=== PATIENT | female | born 1960 | race Two or more races ===

== ENCOUNTER 2021-04-12 06:38 | Day surgery (SDC) | payer OTHER ==
[~2021-04-12 06:38] MED LIST: PROAIR HFA8.5 GM IH
== END 2021-04-12 18:45 | disposition home or self-care (01) ==
LOC: CIR.AMB 06:38
PROVIDERS: ATTEND Surgery
DX: D05.12 Intraductal carcinoma in situ of left breast (principal); Z90.12 Acquired absence of left breast and nipple; Z20.822 Contact with and (suspected) exposure to COVID-19
CPT/HCPCS: 19357; 19303; 38525; 38792; C1789

== ENCOUNTER 2021-08-02 05:30 | Day surgery (SDC) | payer OTHER ==
[~2021-08-02 05:30] MED LIST changes: +ANASTROZOLE1 MG PO; +CLINDAMYCIN PO
== END 2021-08-02 14:30 | disposition home or self-care (01) ==
LOC: CIR.AMB 05:30
PROVIDERS: ATTEND Plastic Surgery
DX: N65.1 Disproportion of reconstructed breast (principal); Z90.12 Acquired absence of left breast and nipple; Z20.822 Contact with and (suspected) exposure to COVID-19